=== PATIENT | male | born 1975 | race Caucasian/White ===

== ENCOUNTER 2023-07-04 12:18 | Emergency (ER) | payer OTHER ==
[2023-07-04] MEDS ORDERED: Lidocaine 1% 10 ML MDV INJECT ONE (13:20)
[2023-07-04] MEDS ORDERED: Diphtheria,Pertussis(Acell),Tetanus Vaccine 0.5 ML Syringe IM ONE (13:46)
== END 2023-07-04 14:09 | disposition home or self-care (01) ==
LOC: JP.ED 12:18
DX: S61.211A Laceration without foreign body of left index finger without damage to nail, initial encounter (principal); Z23 Encounter for immunization; W26.8XXA Contact with other sharp object(s), not elsewhere classified, initial encounter
CPT/HCPCS: 12001; 90471; 90715; 99282; 99282-25